=== PATIENT | male | born 1975 | race Caucasian/White ===

== ENCOUNTER 2018-01-01 14:48 | Emergency (ER) | payer OTHER ==
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
--- NOTE | 2018-01-01 15:47 | CR ---
EXAMINATION: Pelvis HISTORY: Pain COMPARISON: None TECHNIQUE: AP view FINDINGS: There is no acute osseous abnormality, dislocation, or fracture. Bone mineralization and nicky int spaces appear normal. Likely chronically disrupted left superior acetabular osteophyte versus lab ral calcification. SI joints are symmetric. Iliopectineal lines are intact. IMPRESSION: No acute osseous abdomen identified.
--- NOTE | 2018-01-01 16:09 | CT ---
EXAMINATION: Non contrast CT head. Coronal and sagittal reformats. HISTORY: Pain FINDINGS: No evidence of intra or extra axial hemorrhage, mass, midline shift, hydrocephalus or edema. No hypoattenuation changes in the major vascular territories to suggest acute infarct. No abnormal intracranial calcifications are detected. No evidence of substantial vascular calcificat ions. Paranasal sinuses and mastoid air cells are well aerated without substantial findings. Orbits and gl obes are symmetric. Pituitary fossa appears unremarkable. Calvarium is intact. No evidence of skull fracture. IMPRESSION: No acute intracranial findings.
--- NOTE | 2018-01-01 16:22 | CT ---
EXAMINATION: CT cervical and lumbar spine without contrast. HISTORY: Pain COMPARISON: None TECHNIQUE: Axial CT images obtained through the cervical and lumbar spines without contrast. Coronal and sagittal reconstructions obtained. FINDINGS: Cervical spine: The cervical spinal alignment is normal. The vertebral body heights and disc spaces a ppear well-maintained. There is no fracture or acute osseous abnormality. Bone mineralization is norm al. The cervical spinal alignment is normal. Vertebral body heights appear maintained. Mild marginal osteophytes. Paravertebral soft tissues appear grossly unremarkable. Lung apices are clear. CT lumbar spine: The lumbar spinal alignment is normal. Vertebral body heights and disc spaces appear well-maintained. There is no fracture or acute osseous abnormality. Bone mineralization and joint sp aces appear normal. SI joints are symmetric. Visualized retroperitoneal structures are normal. IMPRESSION: 1. No acute osseous abnormalities identified within the cervical or lumbar spine.
== END 2018-01-01 17:07 | disposition home or self-care (01) ==
LOC: MW.ED 14:48
DX: M54.5 Low back pain (principal); V29.49XA Motorcycle driver injured in collision with other motor vehicles in traffic accident, initial encounter
CPT/HCPCS: 70450; 70450-26; 72125; 72125-26; 72131; 72131-26; 72170; 72170-26; 99282; 99284-25

== ENCOUNTER 2018-08-21 10:56 | Day surgery (SDC) | payer OTHER ==
[~2018-08-21 10:56] MED LIST: Betamethasone Acetate/Betamethasone Sod Phosphate 30 MG/5 ML MDV ONE; Iopamidol 408 MG/ML 50 ML SDV ONE; Lidocaine 2% 5 ML SDV ONE; Ropivacaine 0.5% 5 MG/ML 30 ML SDV ONE
--- NOTE | 2018-08-21 19:35 | OR ---
SURGEON: Marisol North D.O. DATE OF PROCEDURE: 08/21/2018 OR STAFF PRESENT: 1. Marisa Garza RN. 2. Ann-Marie Hodges RN. MACHINE MARKER: [facility]. WOUND CLASSIFICATION: I. PREOPERATIVE DIAGNOSES: 1. Lumbar degenerative disk disease. 2. Lumbar radiculopathy. POSTOPERATIVE DIAGNOSES: 1. Lumbar degenerative disk disease. 2. Lumbar radiculopathy. PROCEDURE PERFORMED: 1. Caudal epidural steroid injection. 2. Fluoroscopic guidance for needle placement. 3. Local with oral Valium for sedation. SCREENING QUESTIONS: The patient answered "no" to all of the following questions: 1. Are you allergic to latex? 2. Do you have a bleeding disorder? 3. Do you have any current local or systemic infections? 4. Are you taking any anti-inflammatories or blood thinners? 5. Do you have any joint replacements, heart valve replacements, or a pacemaker? DESCRIPTION OF PROCEDURE: The patient had the procedure thoroughly explained including all possible risks, benefits and alternatives. Consent was signed in my clinic indicating understanding and willingness to proceed. The patient presented to [facility] and was escorted to the dressing room to disrobe and change into a hospital gown. Preoperative vital signs were taken and stable. The patient reported that Valium was taken prior to the procedure. The patient was brought back to the procedure room and placed in the prone position on the procedure room table. A pillow was placed under the hips in order to flatten the lumbar lordosis. The back was prepped with ChloraPrep and sterilely draped. All personnel in the operating room were dressed in appropriate attire including surgical scrubs, head and shoe covers. This was to ensure sterility while in the treatment room. During the time fluoroscopy was in use, all personnel in the operating room wore lead garcia with thyroid collars. Sterile technique was used throughout the procedure. The patient was awake and conversant throughout the procedure. There was no evidence of infection at the site of needle insertion. Skeletal landmarks were identified under fluoroscopy for the caudal epidural. Skin was anesthetized with 2% lidocaine with a sterile 27-gauge 1.5 inch needle. Then a 20-gauge Tuohy epidural needle was placed in the epidural space with loss of resistance technique under fluoroscopic guidance. No heme, cerebrospinal fluid, or paresthesias were noted. Isovue-200 contrast dye was injected in 0.2 cubic centimeter increments and seen to outline the epidural space in both AP and lateral views. There was no intravascular flow pattern observed under live fluoroscopy. Then 12 milligrams of Celestone was slowly injected after negative aspiration and then 3cc 0.5% ropivicaine. The patient tolerated the procedure well. Vital signs were stable during and after the procedure. The staff escorted the patient to the recovery area and the patient was released in stable condition after a brief stay in the recovery room monitored by the nurse. The patient was given both oral and written discharge and follow up instructions with recommendation to follow up given for 2-3 weeks. The patient voiced understanding including understanding of those signs and symptoms that would require emergency care. The patient knows how to contact the office if there are any additional problems or questions in the meantime. PREOPERATIVE PAIN: 5+/10. POSTOPERATIVE PAIN: 3/10. FOLLOWUP: In the pain clinic in 3 weeks. RAINER / LEWIS /[id number]
== END 2018-08-21 13:00 | disposition home or self-care (01) ==
LOC: MW.SDS 10:56
PROVIDERS: ATTEND Anesthesiology
DX: G89.4 Chronic pain syndrome (principal); M51.16 Intervertebral disc disorders with radiculopathy, lumbar region; M47.26 Other spondylosis with radiculopathy, lumbar region; M79.18 Myalgia, other site; Z87.891 Personal history of nicotine dependence; Z79.899 Other long term (current) drug therapy; Z88.0 Allergy status to penicillin
CPT/HCPCS: 62323; J0702; J2795; Q9966; J2001